=== PATIENT | male | born 1995 | race African-American/Black ===

== ENCOUNTER 2018-12-07 19:21 | Emergency (ER) | payer SELFPAY ==
[~2018-12-07] VITALS: Ht 175.3 cm; Wt 65.8 kg
[2018-12-07 19:48] VITALS: BP 136/68
[2018-12-07] MEDS: cefTRIAXone IM 250 MG VIAL IM ONE (20:34)
[2018-12-07] MEDS: AZITHROMYCIN 250 MG TABLET. PO ONE (20:34)
--- NOTE | 2018-12-07 20:50 | PHYS DOC ---
Past Medical History Past Medical History: No Pertinent History Past Surgical History: No Surgical History Alcohol Use: None Drug Use: None Adult General Chief Complaint Chief Complaint: SEXUALLY TRANSMITTED DISEASE [facility] HPI Patient is a 23-year-old male who presents with concerns about possibility of an STD. Patient states that he has noticed a couple of bumps on the glans of his penis. He denies any ulcerations or pain. He also denies any penile discharge. Patient states that he had slipped with another woman a few weeks back and he is worried that he may have gotten an STD. He states that he has been in a monogamous relationship with his fiance for nearly 9 years but states that she had cheated on him so he decided that he would do the same. Review of Systems Review of Systems Constitutional: Denies fever or chills [] Respiratory: Denies cough or shortness of breath [] Cardiovascular: No additional information not addressed in HPI [] GI: Denies abdominal pain, nausea, vomiting, bloody stools or diarrhea [] : Denies dysuria or hematuria. Denies penile discharge [] Integument: Denies rash or skin lesions [] Current Medications Current Medications Current Medications Medications (Trade) Dose Ordered Sig/Cristobal Start Time Stop Time Status Last Admin Dose Admin Azithromycin (Zithromax) 1,000 mg 1X ONCE 12/07/18 20:15 12/07/18 20:24 DC 12/07/18 20:34 1,000 MG Ceftriaxone Sodium (Rocephin Im) 250 mg 1X ONCE 12/07/18 20:15 12/07/18 20:24 DC 12/07/18 20:34 250 MG Allergies Allergies Allergies Coded Allergies Type Severity Reaction Last Updated Verified No Known Drug Allergies 12/07/18 No Physical Exam Physical Exam Constitutional: Well developed, well nourished, no acute distress, non-toxic appearance. [] Cardiovascular: Regular rate and rhythm[] Lungs & Thorax: Bilateral breath sounds clear to auscultation [] : Examination of the penis demonstrates no penile discharge. There are no ulcerations. There are couple of smaller papular like lesions around the glans of the penis. [] Neurologic: Alert and oriented X 3. [] Current Patient Data Vital Signs Vital Signs Date Time Temp Pulse Resp B/P (MAP) Pulse Ox O2 Delivery O2 Flow Rate FiO2 12/07/18 19:48 98.6 84 18 136/68 (90) 99 Room Air 98.6 Lab Values Laboratory Tests Test 12/07/18 20:09 Treponema pallidum Antibody Nonreactive (Nonreactive) EKG EKG [] Radiology/Procedures Radiology/Procedures [] Course & Med Decision Making Course & Med Decision Making Pertinent Labs and Imaging studies reviewed. (See chart for details) [] Dragon Disclaimer Dragon Disclaimer This electronic medical record was generated, in whole or in part, using a voice recognition dictation system. Departure Departure Impression: Primary Impression: Concern about STD in male without diagnosis Disposition: HOME, SELF-CARE Condition: STABLE Referrals: NO PCP (PCP) Patient Instructions: Sexually Transmitted Disease LASHANDA PLASENCIA Jr. DO Dec 07, 2018 20:50
== END 2018-12-07 21:49 | disposition home or self-care (01) ==
LOC: ER 19:21
DX: N50.9 Disorder of male genital organs, unspecified (principal); Z20.2 Contact with and (suspected) exposure to infections with a predominantly sexual mode of transmission
CPT/HCPCS: 36415; 86592; 87491; 87591; 96372; 99283; J0696; Q0144